=== PATIENT | male | born 1960 | race Caucasian/White ===

== ENCOUNTER → 2019-07-25 10:35 | Outpatient (CLI) | payer BC, SELFPAY | PROVIDERS: PCP Family Medicine; Visit Provider Urology | DX: I48.91 Unspecified atrial fibrillation (principal) | CPT/HCPCS: 93270 ==

== ENCOUNTER → 2019-08-09 10:11 | Outpatient (CLI) | payer BC, SELFPAY ==
--- NOTE | 2019-08-09 10:11 | CA_ITS ---
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 Duplex evaluation demonstrates stenosis of the left proximal internal carotid artery <20%. Unable to visualize vertebral arteries. Conclusion Duplex evaluation demonstrates stenosis of the right proximal internal carotid artery <20%. Duplex evaluation demonstrates stenosis of the left proximal internal carotid artery <20%. Unable to visualize vertebral arteries. Electronically signed by : Crow Engel, 08/09/2019 14:24:19
--- NOTE | 2019-08-09 10:11 | CA_ITS ---
APPROVED REPORT EXAM: Comprehensive 2D, Doppler, and color-flow Echocardiogram Supervisor Cooler Service: Tanna Wetzel RVT Ht: 5 ft 9 in Wt: 227lbs BSA: 2.18 BP: 160/80 mmHg Indications: Shortness of Breath, Diabetes, Fatigue, Hypertension,Abn EKG, Dizziness,JASEN 2D Dimensions LVOT 2.23 cm (M/F) 1.5-2.5 M-Mode Dimensions RVDd 1.93 cm (0.9-2.6) LVDd 5.43 cm (3.5-5.7) LVDs 3.78 cm (3.5-5.7) IVSd 0.68 cm (0.6-1.1) PWd 0.64 cm (0.6-1.1) EF (Teich) 57.20% FS 30.40% EDV (Teich) 143.10 mL ESV (Teich) 61.20 mL LV Diastology E/A Ratio 0.63 Mitral Valve MV A Velocity 69.00 (40-130 cm/s) Left Ventricle Left atrium is mildly enlarged, left ventricle is normal size, mild concentric left ventricular hypertrophy, visually estimated ejection fraction 55% with no regional wall motion abnormality. Grade 1 diastolic dysfunction seen without tissue Doppler evidence of raise left atrial pressure. Right Ventricle Right atrium and right ventricle are normal size and contractility. Aortic Valve Aortic valve is minimally thickened and fibrosed, there is no aortic stenosis or aortic insufficiency. Mitral Valve Mitral valve is grossly normal, there is mild mitral regurgitation. Tricuspid Valve Tricuspid valve is grossly normal, there is mild tricuspid regurgitation. Pulmonic Valve Pulmonic valve is poorly visualized. Great Vessels Aortic root is normal size. Pericardium No significant pericardial effusion noted. Conclusion 1. Mildly enlarged left atrium, normal left ventricular size, mild concentric left ventricular hypertrophy, visually estimated ejection fraction 55% with no regional wall motion abnormality, grade 1 diastolic dysfunction seen without tissue Doppler evidence of raise left atrial pressure. 2. Mild mitral and tricuspid regurgitation. 3. No significant pericardial effusion noted. Electronically signed by : Gary Wang, 08/10/2019 13:38:28
--- NOTE | 2019-08-09 11:51 | NM_ITS ---
APPROVED REPORT Exam: Nuclear Stress Test Indication: Abnormal EKG, Syncope, Fatigue, HTN, DM, High cholesterol Patient Location: Outpatient Stress Tech: Marley Wen CT Tech:Myah Metcalf ARRT RT(R)(N) Ht: 5 ft 9 in Wt: 220 lbs HR: 95 bpm BP: 148/96 mmHg BSA: 2.15 m2 BMI: 32.4 History: Abnormal EKG, Syncope, Fatigue, HTN, DM, High cholesterol Procedure: Patient exercised on Elias protocol 7:30 minutes and sec, resting heart rate 95 bpm, resting blood pressure 148/96 mmHg, with exercise maximum heart rate achived was 165 bpm which is Greater than 85 % of the maximum predicted heart rate and blood pressure was 220/90 mmHg. Test was stopped due to SOA and leg fatigue. Patient denied any complaint of chest pain. Patient has Good exercise capacity, achieved 10.1 METs of workload on treadmill, the blood pressure response to exercise was Hypertensive. Electrocardiogram Resting electrocardiogram showed sinus rhythm, with exercise there is 1.[address] segment depression noted from the baseline EKG. The EKG portion of the exercise Myoview is positive for ischemia. Cardiac Stress and Resting SPECT Images: Cardiac Stress and Resting SPECT images were obtained using technetium 99m Myoview 30.4 mCi stress and 10.66 mCi at rest. Gated SPECT with analysis of segmental wall motion and calculation of the ejection fraction also done. Cardiac stress and resting SPECT images show uniform myocardial activity without segmental perfusion abnormality, computer derived ejection fraction is 40% with left ventricle moderate global hypokinesis., Right ventricle is mildly enlarged with normal contractility. Conclusion: 1. The EKG portion of the exercise Myoview is positive for ischemia, patient has good exercise capacity achieved 10.1 mets of workload on treadmill, the blood pressure response to exercise was hypertensive, there was no exercise-induced chest discomfort, test was stopped due to shortness of breath 2. No obvious scintigraphic evidence of reversible ischemia seen at this level of exercise, computer derived ejection fraction is 40% with moderate left ventricular global hypokinesis, right ventricle is mildly enlarged with normal contractility. 3. Abnormal exercise Myoview study. Electronically signed by : Gary Wang, 08/09/2019 16:30:31
--- NOTE | 2019-08-09 13:30 | CA_ITS ---
APPROVED REPORT Exam: Exercise Treadmill Technologist: Marley Wen, Ht: 5 ft 9 in Wt: 220 lbs BSA: 2.15 m2 HR: 95 bpm BP: 148/96 mmHg Rhythm: NSR, ST-T abn inferiorly Indications: Abn EKG, Dizziness, Increased HR Medical History Medical History: HTN, Hyperlipidemia, Diabetes Medications: Lisinopril,,,,, Pioglitazone,,,,, Glipizide,,,,, Montelukast,,,,, Cefdinir,,,,, LoraTADINE,,,,, Meclizine,,,,, Metoprol,,,,, TriaMeterene,,,,, Stress Test Details Test: Elias HR Resting HR: 100 bpm Max Heart Rate (APMHR): 163 bpm Max HR Achieved: 165 bpm Target HR (85% APMHR): 138 bpm % of APMHR: 101 BP Resting BP: 148/96 mmHg Max BP: 220/90 mmHg ECG Clinical Exercise duration: 07:30 min Highest Stage Achieved: Exercise capacity: 10.1 METs Stress ECG Conclusion Exercise 7:30 mins on Elias protocol No CP or dizziness symptoms noted,no arrhythmias, 1-1.5mm horizontal and downsloping ST depression laterally, exaggeration of baseline ST-T abn inferiorly with approx 2mm of horizontal and downsloping ST depression in leads 2-3-avr EKG changes positive for ischemia , specificty due to baseline abn / Myoview images reported separately Test Summary REST . . . . . . . Standing REST . . . . . . . Sitting REST . . . . . . . Standing Standing REST 15:12 0.0 0.0 100 . 148/ 96 . . Stage 1 01:00 10.0 1.7 117 . . . . Stage 1 02:00 10.0 1.7 120 . . . . Stage 1 03:00 10.0 1.7 121 . 164/ 98 . . Stage 2 01:00 12.0 2.5 131 . . . . Stage 2 02:00 12.0 2.5 141 . . . . Stage 2 03:00 12.0 2.5 146 . 218/100 . . Stage 3 . . . . . . . Cardiolite injected Stage 3 01:00 14.0 3.4 160 . . . . Stage 3 01:30 14.0 3.4 164 . . . Stop exercise at 07:30 RECOVERY 01:00 0.0 0.0 147 . . . . RECOVERY 02:00 0.0 0.0 135 . 220/ 90 . . RECOVERY 03:00 0.0 0.0 131 . 220/ 90 . . RECOVERY 04:00 0.0 0.0 129 . 186/105 . . RECOVERY 05:00 0.0 0.0 124 . 186/105 . . RECOVERY 06:00 0.0 0.0 124 . 186/105 . . RECOVERY 07:00 0.0 0.0 124 . 164/ 99 . . RECOVERY 07:38 0.0 0.0 123 . 164/ 99 . . Electronically signed by : Gary Wang, 08/09/2019 16:27:34
--- NOTE | 2019-08-09 13:53 | HMH.ITSHM ---
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 [] metformin meclizine hctz montelukast lisinopril metoprolol asp
== END ==
PROVIDERS: PCP Family Medicine; Visit Provider Urology
DX: R42 Dizziness and giddiness (principal); R06.00 Dyspnea, unspecified; I10 Essential (primary) hypertension; E11.9 Type 2 diabetes mellitus without complications; R94.31 Abnormal electrocardiogram [ECG] [EKG]; Z79.84 Long term (current) use of oral hypoglycemic drugs
CPT/HCPCS: 78452; 93017; 93306; 93880; A9502

== ENCOUNTER → 2019-09-18 08:31 | Outpatient (CLI) | payer BC, SELFPAY ==
[2019-09-18 09:15] LABS: Basophils # 0.1 K/mm3 (0-0.2); Basophils % 0.8 % (0.1-2.0); Eosinophils # 0.2 K/mm3 (0.0-0.4); Eosinophils % 2.7 % (0.1-12.0); Hematocrit 48.6 % (42.0-52.0); Hemoglobin 16.3 g/dL (14.1-18.0); Lymphocytes # 2.4 K/mm3 (0.7-4.5); Lymphocytes % 27.8 % (10-50); Mean Corpuscular HGB Conc 33.6 g/dL (31.8-35.4); Mean Corpuscular Hemoglobin 30.7 pg (27.0-31.2); Mean Corpuscular Volume 91.3 fl (80-94); Mean Platelet Volume 7.4 fl (7.4-10.4); Monocytes # 0.5 K/mm3 (0.1-1.0); Neutrophils # 5.4 K/mm3 (1.8-7.8); Neutrophils % 62.7 % (37.0-80.0); Platelet Count 291 K/mm3 (142-424); Red Blood Count 5.32 M/mm3 (4.60-6.20); Red Cell Distribution Width 12.6 % (11.5-17.5); White Blood Count 8.6 K/mm3 (4.8-10.8)
[2019-09-18 09:18] LABS: Chloride 98 mmol/L (98-107); Potassium 4.6 mmoL/L (3.5-5.1); Sodium 137 mmol/L (136-145)
[2019-09-18 09:21] LABS: Anion Gap 16.6 mEq/L (5-15); Blood Urea Nitrogen 15 mg/dl (9-20); Calcium 9.6 mg/dl (8.4-10.2); Carbon Dioxide 27 mmol/L (22.0-30.0); Estimated Glomerular Filt Rate 100 ml/min (>60); GFR (African American) 121 ML/MIN (>60); Glucose 375 mg/dl (74-100)
== END ==
PROVIDERS: Visit Provider Internal Medicine
DX: Z95.5 Presence of coronary angioplasty implant and graft (principal)
CPT/HCPCS: 36415; 80048; 85025

== ENCOUNTER 2019-09-19 09:58 | Outpatient (RCR) | payer BC, SELFPAY | END 2019-12-03 13:27 | disposition home or self-care (01) | LOC: PT 09:58 | PROVIDERS: Visit Provider Internal Medicine | DX: Z95.5 Presence of coronary angioplasty implant and graft (principal) | CPT/HCPCS: 93798 ==

== ENCOUNTER → 2019-09-19 11:43 | Outpatient (CLI) | payer BC, SELFPAY ==
--- NOTE | 2019-09-19 11:51 | CA_ITS ---
APPROVED REPORT Laterality: Unilateral right Urology Surgeon: Sue Millard RT(R) Indications CAD Symptoms CAD Risk Factors Hyperlipidemia Diabetes Surgery/Intervention Stent : Date : 09/11/2019 , Comments Patient had a [facility] 09/11/19 with right radial access. Patient presents today with a palpable knot at the right radial site. Findings Right arterial duplex is negative for pseudoaneurysm. Right arterial duplex is negative for arterial thrombus. Conclusion Right arterial duplex is negative for pseudoaneurysm. Right arterial duplex is negative for arterial thrombus. Electronically signed by : Crow Engel, 09/19/2019 15:07:09
== END ==
PROVIDERS: PCP Family Medicine; Visit Provider Internal Medicine
DX: T81.9XXA Unspecified complication of procedure, initial encounter (principal)
CPT/HCPCS: 93931

== ENCOUNTER → 2020-02-22 14:44 | Outpatient (CLI) | payer BC, SELFPAY ==
[2020-02-22 16:16] VITALS: BMI 32.9
== END ==
PROVIDERS: PCP Family Medicine; Visit Provider Family Medicine
DX: Z71.3 Dietary counseling and surveillance (principal); E11.9 Type 2 diabetes mellitus without complications
CPT/HCPCS: 97802

== ENCOUNTER 2025-04-16 08:52 | Day surgery (SDC) | payer BC, SELFPAY ==
[2025-04-16] VITALS (14 sets, daily range): BP systolic 124–180; BP diastolic 86–112; PULSE 90–105; RESP 15–18; TEMP 36.6; O2SAT 92–98; BMI 34.8
--- NOTE | 2025-04-16 07:08 | IR_ITS ---
APPROVED REPORT Patient Location: Outpatient PROCEDURES Left heart catheterization Left ventriculogram Selective coronary angiogram Drug-eluting stent deployment to the ostial proximal dominant right coronary Drug-eluting stent deployment to the proximal and mid first obtuse marginal artery INDICATION Coronary artery disease, Angina pectoris Informed consent was obtained prior to the procedure. COMPLICATIONS NONE Estimated Blood Loss: LESS THAN 10 ML TECHNIQUE One percent lidocaine used to anesthetize the right anterior aspect of the wrist. The right radial artery was accessed via the Seldinger technique. A 6 Turkish sheath was placed in the right radial artery. 2.5 mg of Verapamil, 800 mcg of nitroglycerin, 1mg Lidocaine and 5000 U Heparin were given through the arterial sheath. The JL3 catheter was also used to perform left heart catheterization, left ventriculogram and selective coronary angiogram. At the end the diagnostic angiogram therapeutic Was administered giving a therapeutic ACT and the guide cath was placed in the right coronary followed by Choice PT extra-support wire placed distally. A 3 mm x 30 mm Fritz frontier stent was deployed at 22 jen reducing the critical stenosis to 0%. JOSE-3 flow was present before and after the procedure. Following this the guide catheter was placed in left main artery followed by Choice PT extra-support wire placed in the first obtuse marginal artery. Primary stenting could not be performed therefore a 2 mm x 12 mm noncompliant balloon was deployed at 20 jen in the proximal vessel to predilate. Following this a 2 mm x 18 mm [place] frontier stent was deployed at 24 jen reducing the stenosis to 0%. There was additional stenosis distally therefore 800 mcg of intracoronary nitroglycerin was administered which did not alleviate the stenosis. Pulling back the wire also did not alleviate the stenosis. Following this the wire was reinserted and a 2 mm x 12 mm Fritz frontier stent was placed distal to the for stent yet still overlapping and deployed at 12 jen. The balloon was brought back and deployed at 20 jen to post dilate most the 2 stents. JOSE-3 flow was present before and after the procedure. At the end the procedure the apparatus was removed the sheath was removed and hemostasis was achieved using TR banding patient was transferred to the postop putting in stable condition ANGIOGRAPHIC RESULTS The left main artery Normal The left anterior descending artery Has an ostial 20% stenosis followed by proximal stent which extends throughout the proximal segment and into the mid LAD. The stent is widely patent with minimal in-stent restenosis. Distal to the stent a large first diagonal artery is present which is 2.25 mm in diameter and has mild 10 to 20% stenoses. The first diagonal artery does originate nearly skilled nursing down the full length of the LAD. Distal to the first diagonal artery the LAD is small caliber less than 2 mm in diameter and has diffuse 80 to 90% stenoses with additional diffuse 90% stenosis as the LAD wraps the apex The circumflex artery Nondominant yet still large and has proximal 20% stenosis with focal 90% stenosis in the first obtuse marginal artery. The second obtuse marginal is a large-caliber has mid vessel 20% stenosis and a distal 30 to 40% stenosis The right coronary artery Is a dominant vessel and has a proximal 70% stenosis in which there is severe dampening upon engagement The RESENDIZ ventriculogram reveals Preserved at 60% The left ventricular end-diastolic pressure 25 mmHg IMPRESSION Coronary disease as described above Successful stenting of the ostial proximal right coronary severe disease reduced to 0% with 1 drug-eluting stent Severe to critical disease in the first obtuse marginal artery with successful stenting reducing lesion to 0% with 2 contiguous drug-eluting stents Persistent severe mid and distal LAD disease as described above all in a vessel which appears smaller than 2 mm in diameter Preserved ejection fraction Elevated LVEDP PLAN 1. Antiplatelet therapy 2. Patient requires tighter control of diabetes. If diabetes is not at goal consider referral to endocrinology 3. LDL less than 55 to be achieved with high intensity statin 4. Cardiac rehabilitation 5. Avoidance of tobacco products 6. Risk factor modification Electronically signed by : Collin Laguerre MD 04/16/2025 11:36:06
[2025-04-16 09:20] LABS: Hematocrit 42.0 % (42.0-52.0); Hemoglobin 14.2 g/dL (14.1-18.0); Immature Granulocytes % 0.3 %; Mean Corpuscular HGB Conc 33.8 g/dL (31.8-35.4); Mean Corpuscular Hemoglobin 30.7 pg (27.0-31.2); Mean Corpuscular Volume 90.7 fl (80-94); Nucleated Red Blood Cells % 0 %; Platelet Count 263 K/mm3 (142-424); Red Blood Count 4.63 M/mm3 (4.60-6.20); Red Cell Distribution Width-SD 40.8 fL; White Blood Count 8.7 K/mm3 (4.8-10.8)
[2025-04-16 09:30] LABS: Anion Gap 14.5 mEq/L (5-15); Blood Urea Nitrogen 17 mg/dl (9-20); Calcium 9.4 mg/dl (8.4-10.2); Carbon Dioxide 28 mmol/L (22.0-30.0); Chloride 96 mmol/L (98-107); Creatinine Clearance Estimated 114 mL/min (50-200); Creatinine,Serum 1.00 mg/dl (0.66-1.25); Estimated Glomerular Filt Rate 75 ml/min (>60); GFR (African American) 91 ML/MIN (>60); Glucose 245 mg/dl (74-100); Potassium 4.5 mmoL/L (3.5-5.1); Sodium 134 mmol/L (136-145)
[2025-04-16] MEDS: HEPARIN 1,000 UNITS/500ML NS (CATH LAB) 3000 UNIT IV (10:42)
[2025-04-16] MEDS: LIDOCAINE 1% 10ML MDV 10 ML IJ (10:42)
[2025-04-16] MEDS: NITROGLYCERIN 800MCG/8ML SYR (CATH LAB) 800 MCG IA (10:42)
[2025-04-16] MEDS: VERAPAMIL 2.5MG/ML 2ML VIAL 2.5 MG IV (10:43)
[2025-04-16] MEDS: 0.9 % SODIUM CHLORIDE 500 ML 999 ML IV (10:43)
[2025-04-16] MEDS: HEPARIN 1,000 UNITS/ML 10ML VIAL (CATH LAB) 5000 UNIT IV (10:43)
[2025-04-16] MEDS: PRASUGREL 10MG TAB 60 MG PO (11:10)
[2025-04-16] MEDS: FENTANYL 100MCG/2ML VIAL 50 MCG IV (11:12)
[2025-04-16] MEDS: MIDAZOLAM HCL 1MG/ML 5ML VIAL 1 MG IV (11:12)
[2025-04-16] MEDS: IOPAMIDOL-370 (76%);100ML BOTTLE 190 ML IV (11:57)
[2025-04-16 12:01] LABS: CATHL Activated Clotting Time > 400 SEC (74-125)
== END 2025-04-16 15:18 | disposition home or self-care (01) ==
PROVIDERS: PCP Family Medicine; Visit Provider Internal Medicine
PROC: 4A023N7 Measurement of Cardiac Sampling and Pressure, Left Heart, Percutaneous Approach (ICD-10-PCS; CPT 93452; principal; 2025-04-16 11:00)
DX: I25.118 Atherosclerotic heart disease of native coronary artery with other forms of angina pectoris (principal); R07.9 Chest pain, unspecified; R00.0 Tachycardia, unspecified; I10 Essential (primary) hypertension; E78.5 Hyperlipidemia, unspecified; Z79.02 Long term (current) use of antithrombotics/antiplatelets; Z79.84 Long term (current) use of oral hypoglycemic drugs; Z79.85 Long-term (current) use of injectable non-insulin antidiabetic drugs; Z79.82 Long term (current) use of aspirin; Z79.899 Other long term (current) drug therapy; Z95.5 Presence of coronary angioplasty implant and graft
CPT/HCPCS: 80048; 85025; 85347; 92928; 92929; 93458; 99152; 99153; C1725; C1769; C1874; C9600; C9601; J1200; J1644; J3010; J7040; Q9967

== ENCOUNTER 2025-04-19 08:04 | Outpatient (CLI) | payer BC, SELFPAY ==
[2025-04-19 08:32] LABS: Hematocrit 41.4 % (42.0-52.0); Hemoglobin 13.7 g/dL (14.1-18.0); Immature Granulocytes % 0.4 %; Mean Corpuscular HGB Conc 33.1 g/dL (31.8-35.4); Mean Corpuscular Hemoglobin 30.0 pg (27.0-31.2); Mean Corpuscular Volume 90.6 fl (80-94); Nucleated Red Blood Cells % 0 %; Platelet Count 273 K/mm3 (142-424); Red Blood Count 4.57 M/mm3 (4.60-6.20); Red Cell Distribution Width-SD 40.7 fL; White Blood Count 7.5 K/mm3 (4.8-10.8)
[2025-04-19 10:01] LABS: Chloride 99 mmol/L (98-107); Potassium 4.4 mmoL/L (3.5-5.1); Sodium 132 mmol/L (136-145)
[2025-04-19 10:04] LABS: Anion Gap 10.4 mEq/L (5-15); Blood Urea Nitrogen 16 mg/dl (9-20); Carbon Dioxide 27 mmol/L (22.0-30.0); Creatinine,Serum 1.00 mg/dl (0.66-1.25); Estimated Glomerular Filt Rate 75 ml/min (>60); GFR (African American) 91 ML/MIN (>60); Glucose 232 mg/dl (74-100)
[2025-04-19 10:05] LABS: Calcium 8.7 mg/dl (8.4-10.2)
== END 2025-04-19 23:59 | disposition home or self-care (01) ==
LOC: LAB 08:05
PROVIDERS: PCP Family Medicine; Visit Provider Internal Medicine
DX: I25.10 Atherosclerotic heart disease of native coronary artery without angina pectoris (principal)
CPT/HCPCS: 36415; 80048; 85025

== ENCOUNTER → 2025-05-08 09:52 | Outpatient (RCR) | payer BC, SELFPAY | LOC: CR 09:52 | PROVIDERS: PCP Family Medicine; Visit Provider Internal Medicine | DX: Z48.812 Encounter for surgical aftercare following surgery on the circulatory system (principal); Z98.61 Coronary angioplasty status | CPT/HCPCS: 93798 ==